=== PATIENT | female | born 1970 | race African-American/Black ===

== ENCOUNTER 2016-09-14 12:17 | Emergency (ER) | payer MEDICAID ==
[~2016-09-14] VITALS: Ht 162.6 cm; Wt 107.5 kg
[2016-09-14 12:23] VITALS: BP 132/94
[2016-09-14] MEDS ORDERED: KETOROLAC TROMETH 60MG/2ML VIAL IM ONE (12:45)
== END 2016-09-14 13:37 | disposition home or self-care (01) ==
LOC: EDBD 12:17 → ER 12:24
DX: M79.622 Pain in left upper arm (principal); M25.512 Pain in left shoulder; M54.12 Radiculopathy, cervical region; M50.30 Other cervical disc degeneration, unspecified cervical region; E78.5 Hyperlipidemia, unspecified; I10 Essential (primary) hypertension; Z88.8 Allergy status to other drugs, medicaments and biological substances; Z88.6 Allergy status to analgesic agent
CPT/HCPCS: 72040; 96372; 99284; J1885